=== PATIENT | male | born 1940 | race Caucasian/White ===

== ENCOUNTER 2020-12-21 00:41 | Inpatient (IN) | payer MEDICARE, MEDICAID ==
[~2020-12-21] VITALS: Ht 167.6 cm; Wt 55.3 kg
[2020-12-21] MEDS ORDERED: ONDANSETRON HCL 4MG/2ML INJ IV ONE (01:30)
[2020-12-21] MEDS ORDERED: KETOROLAC 30MG/ML VIAL IV ONE (01:30)
[2020-12-21 01:54] LABS: CHLORIDE 111 mEq/L (98-107)
[2020-12-21 01:56] LABS: HEMOGLOBIN. 12.1 g/dL (14.0-18.0); MEAN CORPUSCULAR HEMOGLOBIN 25.6 pg (28.0-32.0); MEAN PLATELET VOLUME 9.5 fl (7.4-10.4); PLATELET 80 x1000/uL (130-400); RED BLOOD CELL COUNT 4.75 mill/uL (4.7-6.1); RED CELL DISTRIBUTION WIDTH 18.1 % (11.6-14.6)
[2020-12-21] MEDS ORDERED: LEVOFLOXACIN 750MG PREMIX 150 ML IV ONE (02:45)
[2020-12-21] MEDS ORDERED: METRONIDAZOLE 500 MG PREMIX 100 ML IV ONE (02:45)
[2020-12-21 02:56] LABS: INR 1.3; PROTHROMBIN TIME 13.5 sec (9.6-11.0)
[2020-12-21 04:09] LABS: CLARITY URINE CLOUDY (CLEAR); COLOR URINE YELLOW (YELLOW); KETONES URINE TRACE (NEGATIVE); LEUKOCYTE ESTERASE URINE NEGATIVE (NEGATIVE); NITRITE URINE NEGATIVE (NEGATIVE); OCCULT BLOOD URINE NEGATIVE (NEGATIVE); PROTEIN URINE 1+ (NEGATIVE); SPECIFIC GRAVITY URINE 1.022 (1.005-1.030); UROBILINOGEN URINE 0.2 E.U./dL (0.2-1.0)
[2020-12-21 06:45] LABS: NUCLEATED RED BLOOD CELLS 1 /100 WBC; PLATELET ESTIMATE DECREASED
[2020-12-21 08:45] VITALS: BP 109/64
[2020-12-21 09:49] VITALS: BP 106/64
[2020-12-21] MEDS ORDERED: METRONIDAZOLE 500 MG PREMIX 100 ML IV SCH (10:15)
[2020-12-21] MEDS ORDERED: LEVOFLOXACIN 500MG PREMIX 100 ML IV SCH (10:15)
[2020-12-21] MEDS: DEXT 5%/0.45% NACL KCL 20MEQ/L 1,000 ML IV SCH ×3 (10:30→23:50)
[2020-12-21] MEDS ORDERED: HYDRALAZINE 20MG/ML VIAL IV PRN (11:45)
[2020-12-21] MEDS ORDERED: LORAZEPAM 2MG/ML CPJ IV PRN (11:45)
[2020-12-21] MEDS ORDERED: ONDANSETRON HCL 4MG/2ML INJ IV PRN (11:45)
[2020-12-21] MEDS: ALBUTEROL 6.7GM HFA INHALER ORI SCH ×3 (11:45→23:45)
[2020-12-21] MEDS ORDERED: MORPHINE SULFATE 2 MG/ML CPJ (NOT FOR IM USE) IV PRN (11:45)
[2020-12-21 12:00] VITALS: BP 106/61
[2020-12-21 12:17] LABS: BG CARBOXYHEMOGLOBIN 1.1 % (0.5-1.5); BG DEOXYHEMOGLOBIN 28.4 % (0.0-5.0); BG FRACTION INSPIRED OXYGEN 21; BG HCO3 ACT 23.9 mmol/L (22.0-26.0); BG METHEMOGLOBIN 0.3 % (0.0-1.5); BG OXYGEN SATURATION 71.2 % (92.0-98.5); BG OXYHEMOGLOBIN 70.2 % (94.0-97.0); BG PCO2 36.3 mmHg (35.0-45.0); BG PH 7.437 (7.350-7.450); BG PO2 38.8 mmHg (75.0-100.0); BG SAMPLE SITE RIGHT RADIAL; BG TOTAL HEMOGLOBIN 10.6 g/dL (12.0-18.0); BG VENT MODE ROOM AIR
[2020-12-21] MEDS: METRONIDAZOLE 500 MG PREMIX 100 ML IV SCH ×2 (13:07→22:05)
[2020-12-21 14:13] LABS: CHLORIDE 113 mEq/L (98-107)
[2020-12-21 14:20] LABS: HEMATOCRIT. 30.9 % (42.0-52.0); HEMOGLOBIN. 9.7 g/dL (14.0-18.0); MEAN CORPUSCULAR HEMOGLOBIN 25.3 pg (28.0-32.0); MEAN CORPUSCULAR VOLUME 80.6 fL (80.0-94.0); MEAN PLATELET VOLUME 8.5 fl (7.4-10.4); PLATELET 61 x1000/uL (130-400); RED BLOOD CELL COUNT 3.83 mill/uL (4.7-6.1); RED CELL DISTRIBUTION WIDTH 18.1 % (11.6-14.6)
[2020-12-21 14:21] LABS: LDL CHOLESTEROL 43 mg/dL (5-100)
[2020-12-21 14:22] LABS: HDL CHOLESTEROL 27 mg/dL (40-59)
[2020-12-21 14:24] LABS: T4 FREE 1.29 ng/dL (0.76-1.46)
[2020-12-21] MEDS ORDERED: DIATR MEGLU/DIATRIZOATE SOLN 30ML PO NR (15:45)
[2020-12-21 16:00] VITALS: BP 113/73
[2020-12-21 17:00] LABS: BG BASE EXCESS -0.3 mmol/L (-2.0-2.0); BG CARBOXYHEMOGLOBIN 0.6 % (0.5-1.5); BG DEOXYHEMOGLOBIN 9.8 % (0.0-5.0); BG FRACTION INSPIRED OXYGEN 44; BG HCO3 ACT 23.6 mmol/L (22.0-26.0); BG METHEMOGLOBIN 0.1 % (0.0-1.5); BG OXYGEN SATURATION 90.1 % (92.0-98.5); BG OXYHEMOGLOBIN 89.5 % (94.0-97.0); BG PCO2 36.1 mmHg (35.0-45.0); BG PH 7.434 (7.350-7.450); BG SAMPLE SITE RIGHT RADIAL; BG TOTAL HEMOGLOBIN 10.4 g/dL (12.0-18.0); BG VENT MODE NASAL CANNULA
[2020-12-21 20:00] VITALS: BP 109/66
[2020-12-21] MEDS: FAMOTIDINE 20MG/2ML VIAL IV SCH (22:05)
[2020-12-21] MEDS ORDERED: IOHEXOL-350 100 ML BOTTLE ONE (23:17)
[2020-12-22] VITALS (7 sets, daily range): BP systolic 101–121; BP diastolic 65–74
[2020-12-22 01:35] LABS: PLATELET ESTIMATE DECREASED
[2020-12-22] MEDS: LEVOFLOXACIN 500MG PREMIX 100 ML IV SCH (05:41)
[2020-12-22] MEDS: ALBUTEROL 6.7GM HFA INHALER ORI SCH ×3 (05:45→17:05)
[2020-12-22 06:41] LABS: BASOPHILS % 0.1 % (0.0-2.0); EOSINOPHILS % 0.3 % (0.0-5.0); HEMATOCRIT. 32.7 % (42.0-52.0); HEMOGLOBIN. 10.3 g/dL (14.0-18.0); LYMPHOCYTES % 7.5 % (20.0-50.0); MEAN CORPUSCULAR HEMOGLOBIN 25.7 pg (28.0-32.0); MEAN CORPUSCULAR VOLUME 81.9 fL (80.0-94.0); MEAN PLATELET VOLUME 8.6 fl (7.4-10.4); MONOCYTES % 11.7 % (2.0-8.0); NEUTROPHILS % 80.4 % (40.0-76.0); PLATELET 57 x1000/uL (130-400); RED BLOOD CELL COUNT 3.99 mill/uL (4.7-6.1)
[2020-12-22] MEDS: METRONIDAZOLE 500 MG PREMIX 100 ML IV SCH ×3 (07:03→22:32)
[2020-12-22 08:03] LABS: CHLORIDE 114 mEq/L (98-107)
[2020-12-22 09:32] LABS: BG CARBOXYHEMOGLOBIN 0.2 % (0.5-1.5); BG DEOXYHEMOGLOBIN 12.2 % (0.0-5.0); BG FRACTION INSPIRED OXYGEN 50; BG HCO3 ACT 20.8 mmol/L (22.0-26.0); BG METHEMOGLOBIN 0.2 % (0.0-1.5); BG OXYGEN SATURATION 87.8 % (92.0-98.5); BG OXYHEMOGLOBIN 87.4 % (94.0-97.0); BG PCO2 32.6 mmHg (35.0-45.0); BG PH 7.423 (7.350-7.450); BG PO2 57.8 mmHg (75.0-100.0); BG SAMPLE SITE RIGHT RADIAL; BG TOTAL HEMOGLOBIN 10.3 g/dL (12.0-18.0); BG VENT MODE MASK - VENTI
[2020-12-22] MEDS ORDERED: DEXAMETHASONE 10 MG/ML VIAL IV NR (11:15)
[2020-12-22 16:09] LABS: HEPATITIS B SURFACE ANTIGEN NEGATIVE
[2020-12-22 16:37] LABS: HEPATITIS A AB IGM NEGATIVE (NEGATIVE)
[2020-12-22] MEDS: FAMOTIDINE 20MG/2ML VIAL IV SCH (20:30)
[2020-12-23] MEDS: ALBUTEROL 6.7GM HFA INHALER ORI SCH ×5 (02:18→22:28)
[2020-12-23 04:00] VITALS: BP 119/67
[2020-12-23] MEDS: LEVOFLOXACIN 500MG PREMIX 100 ML IV SCH (04:23)
[2020-12-23] MEDS: METRONIDAZOLE 500 MG PREMIX 100 ML IV SCH ×3 (05:37→21:23)
[2020-12-23 07:12] LABS: BG BASE EXCESS -0.8 mmol/L (-2.0-2.0); BG CARBOXYHEMOGLOBIN 0.7 % (0.5-1.5); BG DEOXYHEMOGLOBIN 6.6 % (0.0-5.0); BG HCO3 ACT 23.2 mmol/L (22.0-26.0); BG METHEMOGLOBIN 0.1 % (0.0-1.5); BG OXYGEN SATURATION 93.3 % (92.0-98.5); BG OXYHEMOGLOBIN 92.6 % (94.0-97.0); BG PCO2 35.8 mmHg (35.0-45.0); BG PH 7.429 (7.350-7.450); BG PO2 73.8 mmHg (75.0-100.0); BG SAMPLE SITE RIGHT BRACHIAL; BG TOTAL HEMOGLOBIN 10.4 g/dL (12.0-18.0); BG VENT MODE MASK - NRB
[2020-12-23 08:00] VITALS: BP 107/63
[2020-12-23] MEDS: DEXAMETHASONE 4MG/ML 1ML VIAL IV SCH (11:29)
[2020-12-23 12:10] VITALS: BP 115/65
[2020-12-23] MEDS ORDERED: DIATR MEGLU/DIATRIZOATE SOLN 30ML PO NR (14:45)
[2020-12-23] MEDS ORDERED: IVERMECTIN 3 MG TABLET PO ONE (15:00)
[2020-12-23 16:00] VITALS: BP 126/63
[2020-12-23] MEDS ORDERED: REMDESIVIR 200 MG in SODIUM CHLORIDE 0.9% 250 ML IV ONE (17:30)
[2020-12-23 20:00] VITALS: BP 126/61
[2020-12-23] MEDS ORDERED: REMDESIVIR 200 MG in SODIUM CHLORIDE 0.9% 250 ML IV NR (20:00)
[2020-12-23] MEDS ORDERED: IOHEXOL-300 100 ML BOTTLE ONE (20:21)
[2020-12-23] MEDS: FAMOTIDINE 20MG/2ML VIAL IV SCH (21:23)
[2020-12-23 22:00] LABS: HEMATOCRIT. 31.8 % (42.0-52.0); HEMOGLOBIN. 10.2 g/dL (14.0-18.0); MEAN CORPUSCULAR HEMOGLOBIN 25.9 pg (28.0-32.0); MEAN CORPUSCULAR VOLUME 80.4 fL (80.0-94.0); MEAN PLATELET VOLUME 8.4 fl (7.4-10.4); RED BLOOD CELL COUNT 3.95 mill/uL (4.7-6.1); RED CELL DISTRIBUTION WIDTH 18.4 % (11.6-14.6)
[2020-12-23 22:03] LABS: PLATELET 42 x1000/uL (130-400)
[2020-12-23 22:07] LABS: CHLORIDE 106 mEq/L (98-107)
[2020-12-23 23:17] LABS: PLATELET ESTIMATE MARKEDLY DECREASED
[2020-12-24] VITALS (11 sets, daily range): BP systolic 108–130; BP diastolic 60–75
[2020-12-24] MEDS: LEVOFLOXACIN 500MG PREMIX 100 ML IV SCH (04:46)
[2020-12-24] MEDS: ALBUTEROL 6.7GM HFA INHALER ORI SCH ×4 (04:47→23:49)
[2020-12-24] MEDS: METRONIDAZOLE 500 MG PREMIX 100 ML IV SCH ×3 (05:48→23:49)
[2020-12-24 06:47] LABS: BASOPHILS % 0.3 % (0.0-2.0); HEMATOCRIT. 31.3 % (42.0-52.0); HEMOGLOBIN. 10.3 g/dL (14.0-18.0); LYMPHOCYTES % 10.1 % (20.0-50.0); MEAN CORPUSCULAR VOLUME 78.9 fL (80.0-94.0); MEAN PLATELET VOLUME 8.2 fl (7.4-10.4); MONOCYTES % 11.6 % (2.0-8.0); RED BLOOD CELL COUNT 3.97 mill/uL (4.7-6.1)
[2020-12-24 06:55] LABS: CHLORIDE 109 mEq/L (98-107)
[2020-12-24 07:03] LABS: PLATELET 27 x1000/uL (130-400)
[2020-12-24] MEDS: DEXAMETHASONE 4MG/ML 1ML VIAL IV SCH (08:42)
[2020-12-24 09:53] LABS: BG BASE EXCESS 2.7 mmol/L (-2.0-2.0); BG CARBOXYHEMOGLOBIN 0.7 % (0.5-1.5); BG DEOXYHEMOGLOBIN 7.8 % (0.0-5.0); BG FRACTION INSPIRED OXYGEN 15; BG HCO3 ACT 25.8 mmol/L (22.0-26.0); BG METHEMOGLOBIN 0.2 % (0.0-1.5); BG OXYGEN SATURATION 92.1 % (92.0-98.5); BG OXYHEMOGLOBIN 91.3 % (94.0-97.0); BG PCO2 34.1 mmHg (35.0-45.0); BG PH 7.496 (7.350-7.450); BG PO2 65.9 mmHg (75.0-100.0); BG SAMPLE SITE LEFT RADIAL; BG TOTAL HEMOGLOBIN 11.4 g/dL (12.0-18.0); BG VENT MODE MASK - NRB
[2020-12-24] MEDS ORDERED: REMDESIVIR 100 MG in SODIUM CHLORIDE 0.9% 250 ML IV SCH (17:30)
[2020-12-24 18:26] LABS: HEMATOCRIT 35.8 % (42.0-52.0); HEMOGLOBIN 11.6 g/dL (14.0-18.0)
[2020-12-24 18:41] LABS: INR 1.4; PROTHROMBIN TIME 14.6 sec (9.6-11.0)
[2020-12-24] MEDS: FAMOTIDINE 20MG/2ML VIAL IV SCH (21:04)
[2020-12-24] MEDS: REMDESIVIR 100 MG in SODIUM CHLORIDE 0.9% 250 ML IV SCH (21:10)
[2020-12-25] VITALS: BP 115/65
[2020-12-25 04:00] VITALS: BP 110/57
[2020-12-25] MEDS: LEVOFLOXACIN 500MG PREMIX 100 ML IV SCH (04:55)
[2020-12-25] MEDS: ALBUTEROL 6.7GM HFA INHALER ORI SCH ×3 (04:55→17:09)
[2020-12-25] MEDS: METRONIDAZOLE 500 MG PREMIX 100 ML IV SCH ×2 (06:17→15:02)
[2020-12-25 07:04] LABS: BASOPHILS % 0.3 % (0.0-2.0); CHLORIDE 107 mEq/L (98-107); EOSINOPHILS % 0.1 % (0.0-5.0); HEMATOCRIT. 34.6 % (42.0-52.0); HEMOGLOBIN. 11.6 g/dL (14.0-18.0); LYMPHOCYTES % 11.6 % (20.0-50.0); MEAN CORPUSCULAR HEMOGLOBIN 26.1 pg (28.0-32.0); MEAN CORPUSCULAR VOLUME 77.9 fL (80.0-94.0); MEAN PLATELET VOLUME 8.5 fl (7.4-10.4); MONOCYTES % 13.3 % (2.0-8.0); NEUTROPHILS % 74.7 % (40.0-76.0); RED BLOOD CELL COUNT 4.45 mill/uL (4.7-6.1); RED CELL DISTRIBUTION WIDTH 22.8 % (11.6-14.6)
[2020-12-25 07:52] LABS: PLATELET 43 x1000/uL (130-400)
[2020-12-25 07:57] LABS: BG BASE EXCESS 1.2 mmol/L (-2.0-2.0); BG CARBOXYHEMOGLOBIN 1.1 % (0.5-1.5); BG DEOXYHEMOGLOBIN 5.8 % (0.0-5.0); BG FRACTION INSPIRED OXYGEN 99.8; BG HCO3 ACT 24.5 mmol/L (22.0-26.0); BG METHEMOGLOBIN 0.3 % (0.0-1.5); BG OXYGEN SATURATION 94.1 % (92.0-98.5); BG OXYHEMOGLOBIN 92.8 % (94.0-97.0); BG PCO2 34.4 mmHg (35.0-45.0); BG PO2 73.9 mmHg (75.0-100.0); BG SAMPLE SITE RIGHT RADIAL; BG TOTAL HEMOGLOBIN 12.4 g/dL (12.0-18.0); BG VENT MODE MASK - NRB
[2020-12-25 08:00] VITALS: BP 115/72
[2020-12-25] MEDS: DEXAMETHASONE 4MG/ML 1ML VIAL IV SCH (08:20)
[2020-12-25] MEDS ORDERED: POTASSIUM CHLORIDE 20MEQ TABLET SR PO SCH (09:15)
[2020-12-25] MEDS ORDERED: MAGNESIUM 1 G PREMIX 100 ML IV SCH (09:30)
[2020-12-25 12:00] VITALS: BP 102/68
[2020-12-25] MEDS ORDERED: IVERMECTIN 3 MG TABLET PO ONE (15:00)
[2020-12-25 16:00] VITALS: BP 106/69
[2020-12-25 20:00] VITALS: BP 96/61
[2020-12-25] MEDS: REMDESIVIR 100 MG in SODIUM CHLORIDE 0.9% 250 ML IV SCH (21:46)
[2020-12-25] MEDS: FAMOTIDINE 20MG/2ML VIAL IV SCH (21:46)
[2020-12-26] VITALS (9 sets, daily range): BP systolic 103–110; BP diastolic 65–78
[2020-12-26] MEDS: ALBUTEROL 6.7GM HFA INHALER ORI SCH ×5 (00:27→22:52)
[2020-12-26] MEDS: METRONIDAZOLE 500 MG PREMIX 100 ML IV SCH ×4 (00:27→21:14)
[2020-12-26] MEDS: LEVOFLOXACIN 500MG PREMIX 100 ML IV SCH (04:24)
[2020-12-26 08:42] LABS: HEMATOCRIT. 35.4 % (42.0-52.0); HEMOGLOBIN. 11.7 g/dL (14.0-18.0); MEAN CORPUSCULAR HEMOGLOBIN 25.7 pg (28.0-32.0); MEAN CORPUSCULAR VOLUME 77.7 fL (80.0-94.0); MEAN PLATELET VOLUME 8.6 fl (7.4-10.4); PLATELET 66 x1000/uL (130-400); RED BLOOD CELL COUNT 4.56 mill/uL (4.7-6.1); RED CELL DISTRIBUTION WIDTH 23.1 % (11.6-14.6)
[2020-12-26 08:43] LABS: CHLORIDE 105 mEq/L (98-107)
[2020-12-26] MEDS: DEXAMETHASONE 4MG/ML 1ML VIAL IV SCH (09:01)
[2020-12-26 11:15] LABS: BG BASE EXCESS 2.5 mmol/L (-2.0-2.0); BG DEOXYHEMOGLOBIN 5.8 % (0.0-5.0); BG FRACTION INSPIRED OXYGEN 99.8; BG HCO3 ACT 25.7 mmol/L (22.0-26.0); BG METHEMOGLOBIN 0.2 % (0.0-1.5); BG OXYGEN SATURATION 94.1 % (92.0-98.5); BG PCO2 35.2 mmHg (35.0-45.0); BG PH 7.482 (7.350-7.450); BG PO2 69.7 mmHg (75.0-100.0); BG SAMPLE SITE RIGHT RADIAL; BG TOTAL HEMOGLOBIN 12.8 g/dL (12.0-18.0); BG VENT MODE MASK - NRB
[2020-12-26] MEDS ORDERED: LORAZEPAM 2MG/ML CPJ IV PRN (13:15)
[2020-12-26] MEDS ORDERED: LACTULOSE 20G/30ML UDC PO PRN (13:15)
[2020-12-26] MEDS ORDERED: HYDROCODONE/ACETAMINOPHEN 5/325MG TABLET PO PRN (13:15)
[2020-12-26 13:17] LABS: PLATELET ESTIMATE DECREASED
[2020-12-26] MEDS: FAMOTIDINE 20MG/2ML VIAL IV SCH (21:13)
[2020-12-26] MEDS: REMDESIVIR 100 MG in SODIUM CHLORIDE 0.9% 250 ML IV SCH (21:14)
[2020-12-27] VITALS: BP 97/68
[2020-12-27 04:00] VITALS: BP 101/70
[2020-12-27] MEDS: METRONIDAZOLE 500 MG PREMIX 100 ML IV SCH ×3 (05:07→21:07)
[2020-12-27] MEDS: LEVOFLOXACIN 500MG PREMIX 100 ML IV SCH (05:07)
[2020-12-27] MEDS: ALBUTEROL 6.7GM HFA INHALER ORI SCH ×4 (05:08→23:52)
[2020-12-27 06:55] LABS: HEMATOCRIT. 38.1 % (42.0-52.0); HEMOGLOBIN. 12.5 g/dL (14.0-18.0); MEAN CORPUSCULAR HEMOGLOBIN 25.5 pg (28.0-32.0); MEAN CORPUSCULAR VOLUME 77.9 fL (80.0-94.0); RED BLOOD CELL COUNT 4.89 mill/uL (4.7-6.1)
[2020-12-27 07:13] LABS: CHLORIDE 104 mEq/L (98-107)
[2020-12-27 07:18] LABS: INR 1.4; PROTHROMBIN TIME 14.4 sec (9.6-11.0)
[2020-12-27 08:00] VITALS: BP 102/66
[2020-12-27] MEDS: DEXAMETHASONE 4MG/ML 1ML VIAL IV SCH (08:16)
[2020-12-27 08:52] LABS: PLATELET 57 x1000/uL (130-400)
[2020-12-27 08:58] LABS: PLATELET ESTIMATE DECREASED
[2020-12-27 09:07] LABS: BG BASE EXCESS 2.2 mmol/L (-2.0-2.0); BG CARBOXYHEMOGLOBIN 1.1 % (0.5-1.5); BG DEOXYHEMOGLOBIN 4.7 % (0.0-5.0); BG FRACTION INSPIRED OXYGEN 100; BG HCO3 ACT 25.7 mmol/L (22.0-26.0); BG METHEMOGLOBIN 0.3 % (0.0-1.5); BG OXYGEN SATURATION 95.2 % (92.0-98.5); BG OXYHEMOGLOBIN 93.9 % (94.0-97.0); BG PCO2 36.5 mmHg (35.0-45.0); BG PH 7.466 (7.350-7.450); BG PO2 75.7 mmHg (75.0-100.0); BG SAMPLE SITE RIGHT RADIAL; BG VENT MODE MASK - NRB
[2020-12-27 12:00] VITALS: BP 122/69
[2020-12-27] MEDS: GUAIFENESIN-DM 200MG-20MG/10ML UDC PO PRN ×2 (13:34→17:55)
[2020-12-27 16:00] VITALS: BP 105/74
[2020-12-27 20:00] VITALS: BP 98/66
[2020-12-27] MEDS: TEMAZEPAM 15MG CAPSULE PO PRN (21:07)
[2020-12-27] MEDS: FAMOTIDINE 20MG/2ML VIAL IV SCH (21:07)
[2020-12-27] MEDS: REMDESIVIR 100 MG in SODIUM CHLORIDE 0.9% 250 ML IV SCH (23:53)
[2020-12-28] VITALS: BP 101/65
[2020-12-28 04:00] VITALS: BP 105/69
[2020-12-28] MEDS: LEVOFLOXACIN 500MG PREMIX 100 ML IV SCH (04:39)
[2020-12-28] MEDS: ALBUTEROL 6.7GM HFA INHALER ORI SCH ×3 (05:52→16:33)
[2020-12-28] MEDS: METRONIDAZOLE 500 MG PREMIX 100 ML IV SCH ×3 (05:52→21:44)
[2020-12-28 07:13] LABS: HEMATOCRIT 38.2 % (42.0-52.0); HEMOGLOBIN 12.6 g/dL (14.0-18.0); MEAN CORPUSCULAR HEMOGLOBIN 25.5 pg (28.0-32.0); MEAN CORPUSCULAR VOLUME 77.5 fL (80.0-94.0); PLATELET 52 x1000/uL (130-400); RED BLOOD CELL COUNT 4.93 mill/uL (4.7-6.1); RED CELL DISTRIBUTION WIDTH 25.1 % (11.6-14.6)
[2020-12-28 07:19] LABS: CHLORIDE 104 mEq/L (98-107)
[2020-12-28 08:00] VITALS: BP 106/68
[2020-12-28] MEDS: GUAIFENESIN-DM 200MG-20MG/10ML UDC PO PRN ×3 (08:01→16:33)
[2020-12-28] MEDS: DEXAMETHASONE 4MG/ML 1ML VIAL IV SCH (08:01)
[2020-12-28 12:00] VITALS: BP 101/56
[2020-12-28 13:24] LABS: BG BASE EXCESS -1.1 mmol/L (-2.0-2.0); BG CARBOXYHEMOGLOBIN 1.2 % (0.5-1.5); BG DEOXYHEMOGLOBIN 7.4 % (0.0-5.0); BG HCO3 ACT 21.3 mmol/L (22.0-26.0); BG METHEMOGLOBIN 0.3 % (0.0-1.5); BG OXYGEN SATURATION 92.5 % (92.0-98.5); BG OXYHEMOGLOBIN 91.1 % (94.0-97.0); BG PCO2 29.3 mmHg (35.0-45.0); BG PH 7.479 (7.350-7.450); BG PO2 66.2 mmHg (75.0-100.0); BG SAMPLE SITE RIGHT RADIAL; BG TOTAL HEMOGLOBIN 13.5 g/dL (12.0-18.0); BG VENT MODE MASK - SIMPLE
[2020-12-28 16:00] VITALS: BP 101/58
[2020-12-28 20:00] VITALS: BP 103/52
[2020-12-28] MEDS: FAMOTIDINE 20MG TABLET PO SCH (21:44)
[2020-12-28] MEDS: TEMAZEPAM 15MG CAPSULE PO PRN (21:44)
[2020-12-29] VITALS: BP 92/67
[2020-12-29] MEDS: ALBUTEROL 6.7GM HFA INHALER ORI SCH ×4 (02:02→23:45)
[2020-12-29 04:00] VITALS: BP 99/71
[2020-12-29] MEDS: LEVOFLOXACIN 500MG PREMIX 100 ML IV SCH (04:14)
[2020-12-29] MEDS: METRONIDAZOLE 500 MG PREMIX 100 ML IV SCH ×3 (05:29→22:45)
[2020-12-29 06:26] LABS: HEMATOCRIT 37.7 % (42.0-52.0); HEMOGLOBIN 12.3 g/dL (14.0-18.0); MEAN CORPUSCULAR HEMOGLOBIN 25.5 pg (28.0-32.0); MEAN CORPUSCULAR VOLUME 77.9 fL (80.0-94.0); PLATELET 55 x1000/uL (130-400); RED BLOOD CELL COUNT 4.83 mill/uL (4.7-6.1); RED CELL DISTRIBUTION WIDTH 26.6 % (11.6-14.6)
[2020-12-29 06:34] LABS: CHLORIDE 104 mEq/L (98-107)
[2020-12-29 08:00] VITALS: BP 99/62
[2020-12-29] MEDS: DEXAMETHASONE 4MG/ML 1ML VIAL IV SCH (08:46)
[2020-12-29 09:00] LABS: BG BASE EXCESS 1.1 mmol/L (-2.0-2.0); BG CARBOXYHEMOGLOBIN 1.6 % (0.5-1.5); BG DEOXYHEMOGLOBIN 8.2 % (0.0-5.0); BG HCO3 ACT 24.5 mmol/L (22.0-26.0); BG METHEMOGLOBIN 0.3 % (0.0-1.5); BG OXYGEN SATURATION 91.6 % (92.0-98.5); BG OXYHEMOGLOBIN 89.9 % (94.0-97.0); BG PCO2 35.3 mmHg (35.0-45.0); BG PO2 63.5 mmHg (75.0-100.0); BG SAMPLE SITE LEFT BRACHIAL; BG TOTAL HEMOGLOBIN 13.2 g/dL (12.0-18.0); BG VENT MODE MASK - SIMPLE
[2020-12-29 12:00] VITALS: BP 122/73
[2020-12-29 16:00] VITALS: BP 94/63
[2020-12-29 20:00] VITALS: BP 98/65
[2020-12-29] MEDS: FAMOTIDINE 20MG TABLET PO SCH (20:23)
[2020-12-30] VITALS: BP 97/63
[2020-12-30 04:00] VITALS: BP 96/61
[2020-12-30] MEDS: ALBUTEROL 6.7GM HFA INHALER ORI SCH ×4 (06:24→23:33)
[2020-12-30 07:58] LABS: BG BASE EXCESS 3.2 mmol/L (-2.0-2.0); BG CARBOXYHEMOGLOBIN 1.3 % (0.5-1.5); BG DEOXYHEMOGLOBIN 7.7 % (0.0-5.0); BG FRACTION INSPIRED OXYGEN 60; BG HCO3 ACT 26.2 mmol/L (22.0-26.0); BG METHEMOGLOBIN 0.3 % (0.0-1.5); BG OXYGEN SATURATION 92.2 % (92.0-98.5); BG OXYHEMOGLOBIN 90.7 % (94.0-97.0); BG PCO2 34.7 mmHg (35.0-45.0); BG PH 7.496 (7.350-7.450); BG PO2 64.5 mmHg (75.0-100.0); BG SAMPLE SITE LEFT BRACHIAL; BG TOTAL HEMOGLOBIN 13.5 g/dL (12.0-18.0); BG VENT MODE MASK - SIMPLE
[2020-12-30 08:00] VITALS: BP 91/55
[2020-12-30] MEDS: DEXAMETHASONE 4MG/ML 1ML VIAL IV SCH (08:35)
[2020-12-30 09:04] LABS: HEMATOCRIT 37.7 % (42.0-52.0); HEMOGLOBIN 12.4 g/dL (14.0-18.0); MEAN CORPUSCULAR HEMOGLOBIN 25.8 pg (28.0-32.0); MEAN CORPUSCULAR VOLUME 78.7 fL (80.0-94.0); RED BLOOD CELL COUNT 4.79 mill/uL (4.7-6.1); RED CELL DISTRIBUTION WIDTH 26.6 % (11.6-14.6)
[2020-12-30 09:06] LABS: CHLORIDE 104 mEq/L (98-107)
[2020-12-30 11:06] LABS: PLATELET 53 x1000/uL (130-400)
[2020-12-30 12:00] VITALS: BP 96/63
[2020-12-30 16:00] VITALS: BP 101/63
[2020-12-30 20:00] VITALS: BP 99/60
[2020-12-30] MEDS: FAMOTIDINE 20MG TABLET PO SCH (20:42)
[2020-12-30] MEDS: METRONIDAZOLE 500MG TABLET PO SCH (20:42)
[2020-12-30] MEDS: TEMAZEPAM 15MG CAPSULE PO PRN (20:42)
[2020-12-30] MEDS: DEXT 5%/0.45% NACL 1000ML 1,000 ML IV SCH (23:32)
[2020-12-31] VITALS (7 sets, daily range): BP systolic 91–105; BP diastolic 58–65
[2020-12-31] MEDS: ALBUTEROL 6.7GM HFA INHALER ORI SCH ×2 (05:15→11:23)
[2020-12-31] MEDS: METRONIDAZOLE 500MG TABLET PO SCH ×3 (05:15→21:47)
[2020-12-31] MEDS: DEXT 5%/0.45% NACL 1000ML 1,000 ML IV SCH (07:50)
[2020-12-31 08:02] LABS: CHLORIDE 104 mEq/L (98-107)
[2020-12-31 08:12] LABS: HEMATOCRIT. 38.5 % (42.0-52.0); HEMOGLOBIN. 12.2 g/dL (14.0-18.0); MEAN CORPUSCULAR HEMOGLOBIN 25.4 pg (28.0-32.0); RED BLOOD CELL COUNT 4.81 mill/uL (4.7-6.1)
[2020-12-31] MEDS: DEXAMETHASONE 4MG/ML 1ML VIAL IV SCH (08:18)
[2020-12-31 09:50] LABS: BG BASE EXCESS -0.3 mmol/L (-2.0-2.0); BG CARBOXYHEMOGLOBIN 0.8 % (0.5-1.5); BG DEOXYHEMOGLOBIN 3.4 % (0.0-5.0); BG HCO3 ACT 22.6 mmol/L (22.0-26.0); BG OXYGEN SATURATION 96.6 % (92.0-98.5); BG OXYHEMOGLOBIN 95.8 % (94.0-97.0); BG PCO2 31.8 mmHg (35.0-45.0); BG PO2 85.7 mmHg (75.0-100.0); BG SAMPLE SITE LEFT RADIAL; BG TOTAL HEMOGLOBIN 12.5 g/dL (12.0-18.0); BG VENT MODE MASK - SIMPLE
[2020-12-31 11:42] LABS: PLATELET 53 x1000/uL (130-400)
[2020-12-31 11:45] LABS: PLATELET ESTIMATE MARKEDLY DECREASED
[2020-12-31] MEDS: FAMOTIDINE 20MG TABLET PO SCH (21:47)
[2021-01-01] VITALS: BP 90/60
[2021-01-01 04:00] VITALS: BP 89/56
[2021-01-01] MEDS: VANCOMYCIN HCL 1000 MG/20 ML ORAL PO SCH ×6 (05:26→21:04)
[2021-01-01] MEDS: METRONIDAZOLE 500MG TABLET PO SCH ×3 (06:08→21:03)
[2021-01-01 06:39] LABS: HEMATOCRIT. 33.9 % (42.0-52.0); HEMOGLOBIN. 10.9 g/dL (14.0-18.0); MEAN CORPUSCULAR HEMOGLOBIN 25.4 pg (28.0-32.0); MEAN CORPUSCULAR VOLUME 79.4 fL (80.0-94.0); MEAN PLATELET VOLUME 8.8 fl (7.4-10.4); RED BLOOD CELL COUNT 4.27 mill/uL (4.7-6.1); RED CELL DISTRIBUTION WIDTH 26.8 % (11.6-14.6)
[2021-01-01 06:46] LABS: CHLORIDE 104 mEq/L (98-107)
[2021-01-01 07:39] LABS: PLATELET 48 x1000/uL (130-400)
[2021-01-01 08:00] VITALS: BP 96/58
[2021-01-01] MEDS: DEXAMETHASONE 4MG/ML 1ML VIAL IV SCH (09:15)
[2021-01-01 10:11] LABS: INR 1.2; PROTHROMBIN TIME 12.5 sec (9.6-11.0)
[2021-01-01 12:00] VITALS: BP 92/54
[2021-01-01 14:26] LABS: PLATELET ESTIMATE MARKEDLY DECREASED
[2021-01-01] MEDS ORDERED: POTASSIUM CHLORIDE 20MEQ TABLET SR PO SCH (14:30)
[2021-01-01] MEDS: DEXT 5%/0.45% NACL 1000ML 1,000 ML IV SCH (15:47)
[2021-01-01] MEDS: MAGNESIUM OXIDE 400MG TABLET PO SCH (15:47)
[2021-01-01 16:00] VITALS: BP 102/64
[2021-01-01] MEDS ORDERED: MORPHINE SULFATE 2 MG/ML CPJ (NOT FOR IM USE) IV PRN (17:00)
[2021-01-01] MEDS: PANTOPRAZOLE SODIUM 40 MG/VIAL IV SCH (17:00)
[2021-01-01 20:00] VITALS: BP 93/61
[2021-01-01 21:57] LABS: HEMATOCRIT 34.2 % (42.0-52.0); HEMOGLOBIN 11.4 g/dL (14.0-18.0); MEAN CORPUSCULAR HEMOGLOBIN 26.2 pg (28.0-32.0); MEAN CORPUSCULAR VOLUME 78.6 fL (80.0-94.0); RED BLOOD CELL COUNT 4.35 mill/uL (4.7-6.1); RED CELL DISTRIBUTION WIDTH 26.6 % (11.6-14.6)
[2021-01-01 22:09] LABS: PLATELET 48 x1000/uL (130-400)
[2021-01-02] VITALS (8 sets, daily range): BP systolic 87–103; BP diastolic 50–64
[2021-01-02] MEDS: METRONIDAZOLE 500MG TABLET PO SCH ×3 (05:10→20:43)
[2021-01-02 06:51] LABS: INR 1.2; PROTHROMBIN TIME 12.3 sec (9.6-11.0)
[2021-01-02 06:56] LABS: CHLORIDE 104 mEq/L (98-107)
[2021-01-02 07:09] LABS: HEMATOCRIT. 32.8 % (42.0-52.0); HEMOGLOBIN. 10.9 g/dL (14.0-18.0); MEAN CORPUSCULAR HEMOGLOBIN 26.4 pg (28.0-32.0); MEAN CORPUSCULAR VOLUME 79.7 fL (80.0-94.0); MEAN PLATELET VOLUME 9.3 fl (7.4-10.4); RED BLOOD CELL COUNT 4.11 mill/uL (4.7-6.1); RED CELL DISTRIBUTION WIDTH 27.4 % (11.6-14.6)
[2021-01-02 07:12] LABS: TOTAL IRON BINDING CAPACITY 260 ug/dL (250-450)
[2021-01-02 07:57] LABS: PLATELET 42 x1000/uL (130-400)
[2021-01-02] MEDS: PANTOPRAZOLE SODIUM 40 MG/VIAL IV SCH ×2 (08:31→17:18)
[2021-01-02] MEDS: DEXAMETHASONE 4MG/ML 1ML VIAL IV SCH (08:32)
[2021-01-02] MEDS: MAGNESIUM OXIDE 400MG TABLET PO SCH (08:32)
[2021-01-02 08:33] LABS: BG BASE EXCESS 3.3 mmol/L (-2.0-2.0); BG DEOXYHEMOGLOBIN 5.7 % (0.0-5.0); BG FRACTION INSPIRED OXYGEN 60; BG HCO3 ACT 26.3 mmol/L (22.0-26.0); BG METHEMOGLOBIN 0.3 % (0.0-1.5); BG OXYGEN SATURATION 94.2 % (92.0-98.5); BG PCO2 34.4 mmHg (35.0-45.0); BG PH 7.501 (7.350-7.450); BG PO2 66.6 mmHg (75.0-100.0); BG SAMPLE SITE RIGHT RADIAL; BG TOTAL HEMOGLOBIN 11.6 g/dL (12.0-18.0); BG VENT MODE MASK - SIMPLE
[2021-01-02] MEDS: VANCOMYCIN HCL 1000 MG/20 ML ORAL PO SCH ×4 (09:44→20:43)
[2021-01-02 09:51] LABS: PLATELET ESTIMATE MARKEDLY DECREASED
[2021-01-02] MEDS: DEXT 5%/0.45% NACL 1000ML 1,000 ML IV SCH (12:28)
[2021-01-02 17:53] LABS: HEMATOCRIT 32.7 % (42.0-52.0); HEMOGLOBIN 10.9 g/dL (14.0-18.0)
[2021-01-03] VITALS: BP 104/50
[2021-01-03 04:00] VITALS: BP_SYST 102; BP_SYST 80; BP_DIAS 41; BP_DIAS 62
[2021-01-03] MEDS: METRONIDAZOLE 500MG TABLET PO SCH ×3 (05:00→21:06)
[2021-01-03] MEDS: DEXT 5%/0.45% NACL 1000ML 1,000 ML IV SCH (05:00)
[2021-01-03 06:32] LABS: HEMATOCRIT. 31.1 % (42.0-52.0); HEMOGLOBIN. 10.2 g/dL (14.0-18.0); MEAN CORPUSCULAR HEMOGLOBIN 26.2 pg (28.0-32.0); MEAN CORPUSCULAR VOLUME 79.9 fL (80.0-94.0); MEAN PLATELET VOLUME 8.8 fl (7.4-10.4); RED BLOOD CELL COUNT 3.89 mill/uL (4.7-6.1); RED CELL DISTRIBUTION WIDTH 26.5 % (11.6-14.6)
[2021-01-03 06:33] LABS: CHLORIDE 105 mEq/L (98-107)
[2021-01-03 06:46] LABS: PLATELET 45 x1000/uL (130-400)
[2021-01-03 08:00] VITALS: BP 94/52
[2021-01-03] MEDS: FAMOTIDINE 20MG TABLET PO SCH (09:13)
[2021-01-03] MEDS: DEXAMETHASONE 4MG/ML 1ML VIAL IV SCH (09:13)
[2021-01-03] MEDS: VANCOMYCIN HCL 1000 MG/20 ML ORAL PO SCH ×4 (09:13→21:08)
[2021-01-03] MEDS: MAGNESIUM OXIDE 400MG TABLET PO SCH (09:13)
[2021-01-03 12:00] VITALS: BP 98/44
[2021-01-03 14:05] LABS: PLATELET ESTIMATE MARKEDLY DECREASED
[2021-01-03 16:00] VITALS: BP 100/52
[2021-01-03 20:00] VITALS: BP 85/62
[2021-01-04] VITALS: BP 92/55
[2021-01-04 04:00] VITALS: BP 99/66
[2021-01-04] MEDS: DEXT 5%/0.45% NACL 1000ML 1,000 ML IV SCH ×2 (06:12→23:56)
[2021-01-04] MEDS: METRONIDAZOLE 500MG TABLET PO SCH ×3 (06:13→21:32)
[2021-01-04 06:44] LABS: HEMATOCRIT. 31.9 % (42.0-52.0); HEMOGLOBIN. 10.6 g/dL (14.0-18.0); MEAN CORPUSCULAR HEMOGLOBIN 26.9 pg (28.0-32.0); MEAN CORPUSCULAR VOLUME 80.8 fL (80.0-94.0); RED BLOOD CELL COUNT 3.95 mill/uL (4.7-6.1)
[2021-01-04 06:53] LABS: CHLORIDE 104 mEq/L (98-107)
[2021-01-04 08:00] VITALS: BP 103/63
[2021-01-04] MEDS: DEXAMETHASONE 4MG/ML 1ML VIAL IV SCH (09:55)
[2021-01-04] MEDS: MAGNESIUM OXIDE 400MG TABLET PO SCH (09:55)
[2021-01-04] MEDS: FAMOTIDINE 20MG TABLET PO SCH (09:55)
[2021-01-04] MEDS: VANCOMYCIN HCL 1000 MG/20 ML ORAL PO SCH ×4 (09:56→21:32)
[2021-01-04 10:45] LABS: MEAN PLATELET VOLUME 8.7 fl (7.4-10.4); PLATELET 44 x1000/uL (130-400)
[2021-01-04 10:56] LABS: PLATELET ESTIMATE MARKEDLY DECREASED
[2021-01-04 12:00] VITALS: BP 87/56
[2021-01-04 16:00] VITALS: BP 94/63
[2021-01-04 20:00] VITALS: BP 101/69
[2021-01-05] VITALS: BP 94/61
[2021-01-05 04:00] VITALS: BP 91/60
[2021-01-05 08:00] VITALS: BP 106/59
[2021-01-05] MEDS: VANCOMYCIN HCL 1000 MG/20 ML ORAL PO SCH ×4 (09:11→20:18)
[2021-01-05] MEDS: FAMOTIDINE 20MG TABLET PO SCH (09:11)
[2021-01-05] MEDS: DEXAMETHASONE 4MG/ML 1ML VIAL IV SCH (09:11)
[2021-01-05] MEDS: MAGNESIUM OXIDE 400MG TABLET PO SCH (09:11)
[2021-01-05 12:00] VITALS: BP 100/56
[2021-01-05 16:00] VITALS: BP 104/75
[2021-01-05 20:00] VITALS: BP 106/66
[2021-01-05] MEDS: DEXT 5%/0.45% NACL 1000ML 1,000 ML IV SCH (20:11)
[2021-01-05] MEDS: ALBUTEROL (0.083%) 2.5MG/3ML NEB HHN SCH (21:21)
[2021-01-06] VITALS (7 sets, daily range): BP systolic 92–103; BP diastolic 58–68
[2021-01-06] MEDS: ALBUTEROL (0.083%) 2.5MG/3ML NEB HHN SCH ×3 (01:11→15:53)
[2021-01-06] MEDS: MAGNESIUM OXIDE 400MG TABLET PO SCH (08:56)
[2021-01-06] MEDS: VANCOMYCIN HCL 1000 MG/20 ML ORAL PO SCH ×2 (08:56→14:44)
[2021-01-06] MEDS: FAMOTIDINE 20MG TABLET PO SCH (08:56)
[2021-01-06] MEDS: DEXAMETHASONE 4MG/ML 1ML VIAL IV SCH (08:56)
[2021-01-06 12:28] LABS: HEMATOCRIT. 33.1 % (42.0-52.0); MEAN CORPUSCULAR HEMOGLOBIN 26.7 pg (28.0-32.0); MEAN CORPUSCULAR VOLUME 80.5 fL (80.0-94.0); MEAN PLATELET VOLUME 8.9 fl (7.4-10.4); PLATELET 52 x1000/uL (130-400); RED BLOOD CELL COUNT 4.11 mill/uL (4.7-6.1); RED CELL DISTRIBUTION WIDTH 26.9 % (11.6-14.6)
[2021-01-06 12:34] LABS: CHLORIDE 104 mEq/L (98-107)
[2021-01-06 14:34] LABS: PLATELET ESTIMATE MARKEDLY DECREASED
[2021-01-06] MEDS ORDERED: MORPHINE SULFATE 2 MG/ML CPJ (NOT FOR IM USE) IV PRN (17:45)
[2021-01-06] MEDS ORDERED: LORAZEPAM 2MG/ML CPJ IV PRN (17:45)
[2021-01-06] MEDS: DEXT 5%/0.45% NACL 1000ML 1,000 ML IV SCH (17:54)
[2021-01-07] MEDS ORDERED: PREDNISONE 20MG TABLET PO SCH (07:15)
[2021-01-07] MEDS ORDERED: LACTOBACILLUS GG CAPSULE PO SCH (09:00)
== END 2021-01-06 21:21 | DRG 871 ==
LOC: ER 01:06 → ENRESERV 07:21 → 7WST 09:30 → 5WST 12-31 15:20
PROVIDERS: ADMIT Internal Medicine; ATTEND Internal Medicine
PROC: XW033E5 Introduction of Remdesivir Anti-infective into Peripheral Vein, Percutaneous Approach, New Technology Group 5 (ICD-10-PCS; principal; 2020-12-23)
PROC: 30233R1 Transfusion of Nonautologous Platelets into Peripheral Vein, Percutaneous Approach (ICD-10-PCS; 2020-12-24)
DX: A41.89 Other specified sepsis (principal); U07.1 COVID-19; J96.01 Acute respiratory failure with hypoxia; J12.82 Pneumonia due to coronavirus disease 2019; J15.9 Unspecified bacterial pneumonia; D68.59 Other primary thrombophilia; I82.411 Acute embolism and thrombosis of right femoral vein; C20 Malignant neoplasm of rectum; K52.9 Noninfective gastroenteritis and colitis, unspecified; D69.6 Thrombocytopenia, unspecified; E86.0 Dehydration; I10 Essential (primary) hypertension; D50.9 Iron deficiency anemia, unspecified; I49.3 Ventricular premature depolarization; I49.9 Cardiac arrhythmia, unspecified; I44.1 Atrioventricular block, second degree; R73.9 Hyperglycemia, unspecified; R16.1 Splenomegaly, not elsewhere classified; Z79.51 Long term (current) use of inhaled steroids; Z79.2 Long term (current) use of antibiotics; Z79.899 Other long term (current) drug therapy
CPT/HCPCS: 36415; 36600; 71045; 71275; 74176; 74177; 78278; 80048; 80053; 80061; 80076; 81003; 82270; 82375; 82728; 82805; 83036; 83540; 83550; 83615; 83735; 83880; 84145; 84439; 84443; 85014; 85018; 85025; 85027; 85049; 85379; 85384; 86038; 86705; 86709; 86803; 86850; 86900; 86920; 87015; 87045; 87340; 87426; 87427; 87449; 87493; 89055; 93005; 93306; 93970; 94640; 97162; 99285; A6261; A9560; C1893; C9113; J1100; J1885; J1956; J2405; J3370; J3475; J3490; J7040; J7050; P9034; Q9957; Q9963; Q9967; U0003; U0005